=== PATIENT | male | born 1970 | race Caucasian/White ===

== ENCOUNTER 2017-06-06 11:29 | Day surgery (SDC) | payer OTHER ==
[2017-06-05 14:31] VITALS: BMI 24.4
[~2017-06-06 11:29] MED LIST: BUPIVACAINE HCL/PF (5 MG/ML) 30 ML VIAL IJ ONE
[2017-06-06] MEDS ORDERED: ceFAZolin SODIUM 1 GM VIAL IVPB ONE (13:20)
[2017-06-06] MEDS ORDERED: BUPIVACAINE HCL/PF 0.5% (5MG/ML) 10 ML VIAL ONE (13:35)
[2017-06-06] MEDS ORDERED: BUPIVACAINE HCL/PF (5 MG/ML) 30 ML VIAL IJ ONE (13:57)
--- NOTE | 2017-06-06 14:06 | OP ---
Operative Note - Note: Operative Date: 06/06/17 Pre-Operative Diagnosis: Left hydrocele Operation: Left hydrocelectomy Findings: Large left sided hydrocele with clear fluid Post-Operative Diagnosis: Same as Pre-op Surgeon: Noa Capone Anesthesia: General Specimens Removed: Left hydrocele sac Estimated Blood Loss (mls): 10 Drains & Tubes with Location: 1/" richardson drain Operative Report Dictated: Yes
[2017-06-06] MEDS ORDERED: ONDANSETRON 4 MG/2 ML VIAL IVPUSH PRN (14:33)
[2017-06-06] MEDS ORDERED: oxyCODONE HCL 5 MG TABLET PO PRN (14:33)
[2017-06-06] MEDS ORDERED: LACTATED RINGERS SOLUTION 1,000 ML IV SCH (14:45)
[2017-06-06 15:06] VITALS: TEMP 98
[2017-06-06] MEDS ORDERED: oxyCODONE HCL 5 MG TABLET PO ONE (16:35)
[2017-06-06] MEDS ORDERED: oxyCODONE HCL 5 MG TABLET ONE (16:35)
[2017-06-06 17:47] VITALS: BP 106/79; PULSE 72
--- NOTE | 2017-06-07 09:39 | OP ---
DATE OF OPERATION: 06/06/2017 SURGEON: Noa Capone MD ANESTHESIA: General. PREOPERATIVE DIAGNOSIS: Left hydrocele. POSTOPERATIVE DIAGNOSIS: Left hydrocele. PROCEDURE: Left hydrocelectomy. FINDINGS: A large, left-sided hydrocele noted. The fluid was very clear. No evidence of any inflammation of the testes noted. Right-side testis was found to be normal. No evidence of any hernia noted. DESCRIPTION OF PROCEDURE: The patient, in supine position under general anesthesia, was prepped and draped in the usual manner. A skin incision was made on the left hemiscrotum, deepened to the deeper structures, and the hydrocele sac was delivered outside the incision in . Then, complete dissection of the sac carried out and the fluid drained, about 300-400 mL. The hydrocele sac was excised. Then, the edge was cauterized and oversewn with 2-0 sutures. Multiple bleeding points were electrocoagulated or suture ligated. Then, the testis was placed back in the scrotum. A 1/4-inch Augustina drain was placed and the wound closed in layers. Next, 0.5% Marcaine 10 mL was used around the edges to minimize the pain. Patient tolerated the procedure well, left the operating room under satisfactory condition. Omari MEDELLIN/[id number]
--- NOTE | 2017-06-08 16:55 | PATH ---
Surgical Pathology Report Patient Name: XIMENA PRYOR [facility]. Rec. #: [id number] /Age/Gender: 1970 (Age: 46) / M Account: [id number] Location: [facility] [place] SURGICAL Taken: 06/06/2017 Received: 06/07/2017 Reported: 06/08/2017 Physicians: Noa Capone M.D. Specimen(s) Received LEFT HYDROCELE SAC Clinical History Left hydrocele Final Diagnosis HYDROCELE SAC, LEFT, HYDROCELECTOMY: FIBROMEMBRANOUS, FIBROADIPOSE TISSUE, AND FIBROMUSCULAR TISSUE, CONSISTENT WITH HYDROCELE SAC. Electronically Signed Romelia Moctezuma M.D. Gross Description Received in formalin labeled "hydrocele sac left," is a 2.3 x 0.9 x 0.4 cm pink-mccarty, irregular portion of fibromembranous tissue, consistent with a hydrocele. The specimen is sectioned and entirely submitted in one cassette. 06/07/201706/07/2017
== END 2017-06-06 17:44 | disposition home or self-care (01) ==
LOC: JASU-SURG 11:29
PROVIDERS: ATTEND Urology
PROC: 0VB70ZZ Excision of Left Tunica Vaginalis, Open Approach (ICD-10-PCS; principal; 2017-06-06 13:00)
DX: N43.3 Hydrocele, unspecified (principal)
CPT/HCPCS: 88302-TC; 94760